=== PATIENT | male | born 1960 | race Caucasian/White ===

== ENCOUNTER → 2019-11-06 13:21 | Outpatient (CLI) | payer OTHER ==
[2014-11-23 17:34] VITALS: BMI 22.7
[~2019-11-06 13:21] MED LIST: BRILINTA90 MG PO; HYDROCODON-ACE1 EAC9 PO; TAMIFLU75 MG PO; XANAX1 MG PO
== END | disposition home or self-care (01) ==
LOC: D.RAD 13:00
PROVIDERS: ATTEND Pediatrics
DX: Z02.71 Encounter for disability determination (principal)

== ENCOUNTER → 2020-01-08 09:57 | Outpatient (CLI) | payer BC ==
[2014-11-23 17:34] VITALS: BMI 22.7
== END | disposition home or self-care (01) ==
LOC: D.HCCARDIO 09:57
PROVIDERS: ATTEND Internal Medicine Cardiovascular Disease
DX: I25.119 Atherosclerotic heart disease of native coronary artery with unspecified angina pectoris (principal)

== ENCOUNTER 2020-02-15 06:06 | Outpatient (CLI) | payer MEDICAID ==
[~2020-02-15] VITALS: Ht 170.2 cm; Wt 78.2 kg
--- NOTE | ~2020-02-15 | HEMODYNAMI ---
PATIENT:SARITA GUZMAN MEDICAL RECORD: [id number] : 60 LOCATION:[facility] ADMISSION DATE: 02/15/20 Generatedon:02/15/20208:43 Patient name: SARITA GUZMAN Patient #: [id number] SSN: [id number] : 1960 Date of study: 02/15/2020 Page: Of Hemodynamic Procedure Report Patient Data Patient Demographics Procedure consent was obtained First Name: SARITA Gender: Male Last Name: MEGAN : 1960 Patient #: [id number] Age: 59 year(s) Race: SSN: [id number] Additional ID: [id number] Contact details Address: [address] [place] [address] [address] State: [place] City: [place] Zip code: [address] Past Medical History Performed procedures and imaging results Date Procedure Procedure Results Comments 01/08/2020 Stress testing Positive->Intermediate with SPECT MPI risk Allergies: No known allergies Admission Admission Data Admission Date: 02/15/2020 Admission Time: 6:06 Arrival Date: 02/15/2020 Arrival Time: 0:00 Admit Source: Other Insurance Payor: Private health insurance [employer] [place] #: [id number] Height (in.): 67 BSA: 1.9 (m2) Height (cm.): 170.18 BMI: 26.99 (kg/m2) Weight (lbs.): 172.36 Weight (kg.): 78.18 Lab Results Lab Result Date: 02/15/2020 Lab Result Time: 0:00 Biochemistry Name Units Result Min Max BUN mg/dl 11 --(-*--)-- 7 18 Creatinine mg/dl 1.2 --(---*)-- 0.6 1.3 eGFR ml/min 66 *-(----)-- 90 120 NONAFRICAN CBC Name Units Result Min Max Hematocrit % 40.7 -*(----)-- 42 54 Hemoglobin g/dl 14.1 --(*---)-- 13.5 17.5 Procedure Procedure Types Cath Procedure Diagnostic Procedure [facility] w/Coronaries Sedation Charges Moderate Sedation up to 30 minutes Procedure Description Procedure Date Procedure Date: 02/15/2020 Procedure Start Time: 8:06 Procedure End Time: 8:42 Procedure Staff Name Function Sydnee Claros RT Monitor Yvonne Arthur RT Scrub Patel Garcia MD Performing Physician Sabrina Hutson RT [employer] Kris Reyna RN Nurse Procedure Data Cath Procedure Fluoroscopy Diagnostic fluoroscopy Total fluoroscopy Time: 8.4 time: 8.4 min min Diagnostic fluoroscopy Total fluoroscopy dose: 836 dose: 836 mGy mGy Contrast Material Contrast Material Type Amount (ml) Isovue 370 124 Entry Location Entry Primary Successful Side Size Upsize Upsize Entry Closure Cardozo ccessful Closure Location (Fr) 1 (Fr) 2 (Fr) Remarks Device Remarks Femoral Right 5 Fr Manual vein Compression Femoral Right 5 Fr Exoseal artery Estimated blood loss: 5 ml Diagnostic catheters Device Type Used For End Catheter Placement MULTIPACK JL 4.0 5Fr Procedure catheter MULTIPACK 3DRC 5Fr Procedure catheter DIAGNOSTIC AL1 5Fr Procedure catheter ([id number]) DIAGNOSTIC AL2 5Fr Procedure catheter ([id number]) DIAGNOSTIC JL 3.5 5Fr Procedure catheter ([id number]) MULTIPACK Pigtail 5 Fr Procedure catheter Procedure Complications No complications Procedure Medications Medication Administration Route Dosage Oxygen etCO2 Nasal cannula 2 l/min Lidocaine 2% added to field 20 Heparin Flush Bag added to field 2 bags (1000units/500ml NS) 0.9% NaCl I.V. 100 ml/hr Versed I.V. 2 mg Fentanyl I.V. 100 mcg Versed I.V. 2 mg Fentanyl I.V. 100 mcg Hemodynamics Rest BSA: 1.9 (m2) O2 Consumption: Estimated: 237.75 (ml/min) O2 Consumption indexed: Estimated:125.13 (ml/min/m) Heart Rate: 90 (bpm) Pressure Samples Time Site Value (mmHg) Purpose Heart Use Rate(bpm) 8:32 LV 129/28,40 Snapshot 92 Gradients Valve Time Site Site Mean SEP/DFP Peak To Heart Use 1 2 (mmHg) (sec/min) Peak Rate (mmHg) (bpm) Aortic 8:33 LV AO 87 Snapshots Pre Cath Intra NCS Post Cath Vital Signs Time Heart Resp SPO2 etCO2 NIBP (mmHg) Rhythm Pain Sedation Rate (ipm) (%) (mmHg) Status Level (bpm) 7:58:39 87 14 96 43.4 90/59(78) NSR 0 (11) 10(A) , No pain 8:02:46 87 15 97 17.9 103/63(83) NSR 0 (11) 10(A) , No pain 8:06:52 89 14 96 0 95/83(91) NSR 0 (11) 10(A) , No pain 8:10:54 93 12 95 44.9 105/83(97) NSR 0 (11) 9(A) , No pain 8:15:49 94 15 94 15.7 140/78(115) NSR 0 (11) 9(A) , No pain 8:19:59 97 12 93 0 110/74(100) NSR 0 (11) 9(A) , No pain 8:24:07 139 14 94 21.7 94/71(89) NSR 0 (11) 9(A) , No pain 8:28:14 94 13 95 1.4 88/67(83) NSR 0 (11) 9(A) , No pain 8:32:20 94 15 96 26.9 93/64(88) NSR 0 (11) 9(A) , No pain 8:36:28 93 14 96 8.9 101/63(82) NSR 0 (11) 10(A) , No pain 8:40:40 90 9 97 0.7 102/63(83) NSR 0 (11) 10(A) , No pain Medications Time Medication Route Dose Verified Delivered Reason Notes Effe ctiveness by by 7:57:01 Oxygen etCO2 2 Patel Buffie used for Nasal l/min Jose Reyna RN procedure cannula 7:57:08 Lidocaine 2% added 20ml Patel Patel for local to vial Jose Garcia MD anesthetic field 7:57:15 Heparin Flush added 2 Patel Patel used for Bag to bags Jose Garcia MD procedure (1000units/500ml field NS) 7:57:24 0.9% NaCl I.V. 100 Patel Buffie Per ml/hr Jose Reyna RN physician 8:06:05 Versed I.V. 2 mg Patel Buffie for Jose Reyna RN sedation 8:06:10 Fentanyl I.V. 100 [place]el [place]abel[place] [facility] [place] Reyna RN sedation 8:13:12 Versed I.V. 2 mg Patel Kris for Jose Reyna RN sedation 8:13:16 Fentanyl I.V. 100 Patel [place]abel[place] [facility] [place] Reyna RN sedation Procedure Log Time Note 7:17:20 Informed consent obtained and on chart 7:17:50 Arrival Date: 02/15/2020 12:00:00 AM 7:17:51 Admit Source: Other 7:17:54 Patient Height : 67 inches 7:17:59 Patient Weight : 172.36 lbs 7:18:06 Insurance Payor : Private health insurance 7:20:07 Patient allergic to No known allergies 7:20:51 Stress Test: yes; normal STABLE 7:21:09 Lab results completed and on chart. 7:21:15 Time tracking: Regular hours (M-F 7:00 - 5:00) 7:21:19 Plan of Care:Hemodynamics will remain stable., Cardiac rhythm will remain stable., Comfort level will be maintained., Respiratory function will remain adequate., Patient/ family verbilizes understanding of procedure., Procedure tolerated without complication., Recovers from procedure without complications.. 7:25:10 H&P Date Dictated: 02/07/2020 Within 30 days and on chart.. 7:25:11 Pre-procedure instructions explained to patient. 7:25:12 Pre-op teaching completed and patient verbalized understanding. 7:25:13 Family unavailable. 7:25:15 Patient NPO since Midnight. 7:30:43 Lab Result : eGFR NONAFRICAN 66 ml/min 7:30:43 Lab Result : Hemoglobin 14.1 g/dl 7:30:43 Lab Result : BUN 11 mg/dl 7:30:43 Lab Result : Creatinine 1.2 mg/dl 7:30:43 Lab Result : Hematocrit 40.7 % 7:39:30 Procedure Status Elective Heart Cath (OP). 7:39:33 Sabrina Hutson RT(R) sent for patient. Start room use. 7:44:33 Patient received from Pre/Post Procedure Room to [facility] 1 Alert and oriented. Tansferred to table in Supine position. 7:44:35 Warm blankets applied, and geri hugger turned on for patient comfort. 7:44:35 Correct patient and procedure confirmed by team. 7:44:36 ECG and BP/O2 sat monitors applied to patient. 7:49:55 Full Disclosure recording started 7:49:58 Is the patient allergic to Iodine/contrast media? No. 7:49:59 Is patient on blood thinner?No 7:50:03 Patient diabetic? No. 7:50:06 Previous problem with sedation/anesthesia? No ? 7:50:08 Snore? Yes 7:50:09 Sleep apnea? No 7:50:10 Deviated septum? No 7:50:11 Opens mouth fully? Yes 7:50:12 Sticks out tongue? Yes 7:50:14 Airway obstruction? No ? 7:50:17 Dentures? No ? 7:50:22 Patient pain scale 0/10 ?. 7:50:26 Pre procedure: right dorsailis pedis pulse 1+ Palpable, but thready & weak; easily obliterated 7:51:46 IV patent on arrival in left hand with 0.9% NaCl at KVO. 7:51:50 Right groin area was prepped with chlora-prep and draped in sterile fashion 7:51:51 Alarms reviewed by R. N. 7:51:52 Sharps counted by scrub and verified by R.N. 7:51:52 Sharps counted by scrub and verified by R.N. 7:52:56 Use device set Femoral Dx 7:52:57 ACIST Syringe (87274) opened to sterile field. 7:52:57 Bag Decanter (2002) opened to sterile field. 7:52:58 ACIST Hand Control (93602) opened to sterile field. 7:52:59 ACIST Manifold (94387) opened to sterile field. 7:52:59 Tegaderm 4 x 4 (1626W) opened to sterile field. 7:53:00 Medline Cath Pack ([id number]) opened to sterile field. 7:53:01 DIAGNOSTIC Multipack 5Fr catheter set ([id number]) opened to sterile field. 7:53:02 SHEATH 5FR [place] (FQD761) opened to sterile field. 7:53:02 EMERALD Guide Wire (427-135) opened to sterile field. 7:57:01 Oxygen 2 l/min etCO2 Nasal cannula was administered by Kris Reyna RN; used for procedure; Verbal order read back and verified. 7:57:08 Lidocaine 2% 20ml vial added to field was administered by Patel Garcia MD; for local anesthetic; Verbal order read back and verified. 7:57:15 Heparin Flush Bag (1000units/500ml NS) 2 bags added to field was administered by Patel Garcia MD; used for procedure; Verbal order read back and verified. 7:57:24 0.9% NaCl 100 ml/hr I.V. was administered by Kris Reyna RN; Per physician; Verbal order read back and verified. 7:57:27 Vital chart was started 8:03:32 --------ALL STOP TIME OUT------ 8:03:33 Final Timeout: patient, procedure, and site verified with staff and physician. All members of the team are in agreement. 8:03:35 Right groin site verified by team. 8:03:38 Fire Safety Assessment: A--An alcohol-based skin anteseptic being used preoperatively., C--Open oxygen or nitrous oxide is being used., D--An ESU, laser, or fiber-optic light is being used. 8:03:44 Physical assessment completed. ASA score P 2 - A patient with mild systemic disease as per Patel Garcia MD. 8:03:49 2) 60-89 Mildly reduced kidney function, and other findings (as for stage 1) point to kidney disease. 8:03:53 Maximum allowable contrast dose (3.7 X eGFR X 0.75)183 ml. 8:03:57 Sedation plan: IV Moderate Sedation Medication:Versed, Fentanyl 8:06:05 Versed 2 mg I.V. was administered by Kris Reyna RN; for sedation; Verbal order read back and verified. 8:06:10 Fentanyl 100 mcg I.V. was administered by Kris Reyna RN; for sedation; Verbal order read back and verified. 8:06:41 Procedure started. 8:06:46 Local anesthetic to right femoral artery with Lidocaine 2% by Patel Garcia MD.INITIAL ACCESS ONLY 8:07:33 Baseline sample Acquired. 8:07:36 Rhythm: sinus rhythm 8:09:23 A 5 Fr sheath was inserted into the Right Femoral vein 8:10:49 VEIN ACCESS WHILE ATTEMPTING ARTERY ACCESS NEW SHEATH AND GOING FOR FEMORAL ARTERIAL. 8:10:58 SHEATH 5FR [place] (LBC943) opened to sterile field. 8:11:10 A 5 Fr sheath was inserted into the Right Femoral artery 8:12:38 A MULTIPACK JL 4.0 5Fr catheter was advanced over the wire and used for Procedure. 8:12:59 LCA angiography performed. 8:13:03 Injector settings: Ml/sec: 3, Volume: 6, 8:13:12 Versed 2 mg I.V. was administered by Kris Reyna RN; for sedation; Verbal order read back and verified. 8:13:16 Fentanyl 100 mcg I.V. was administered by Kris Reyna RN; for sedation; Verbal order read back and verified. 8:15:02 Catheter exchanged over wire. 8:17:30 A MULTIPACK 3DRC 5Fr catheter was advanced over the wire and used for Procedure. 8:17:34 RCA angiography performed. 8:17:35 CIRC IS VISUALIZED OFF THE DISTAL RCA. 8:17:39 ACCDominant side:Right 8:17:42 Catheter exchanged over wire. 8:19:59 GUIDE 6FR JL 5.0 catheter ([id number]) opened to sterile field. 8:20:32 JL5 USED TO ENGAGE CIRC OF THE LCA. 8:21:38 UNABLE TO ENGAGE. 8:22:02 Catheter exchanged over wire. 8:23:12 A DIAGNOSTIC AL1 5Fr catheter ([id number]) was advanced over the wire and used for Procedure. 8:25:25 UNABLE TO ENGAGE. 8:25:27 Catheter exchanged over wire. 8:26:10 A DIAGNOSTIC AL2 5Fr catheter ([id number]) was advanced over the wire and used for Procedure. 8:27:51 UNABLE TO ENGAGE. 8:27:54 Catheter exchanged over wire. 8:28:43 A DIAGNOSTIC JL 3.5 5Fr catheter ([id number]) was advanced over the wire and used for Procedure. 8:31:28 UNABLE TO ENGAGE. 8:31:30 Catheter exchanged over wire. 8:31:38 A MULTIPACK Pigtail 5 Fr catheter was advanced over the wire and used for Procedure. 8:32:34 LV hemodynamics recorded. 8:32:36 LV gram done using FORD 8:32:38 Injector settings: Ml/sec: 5, Volume: 15, 8:32:44 EF : 60 % 8:33:23 Injector settings: Ml/sec: 10, Volume: 20, 8:33:44 Aortic Root visualized 8:37:07 Catheter removed. 8:37:10 EXOSEAL 5Fr (EX500) opened to sterile field. 8:37:29 Sheath removed intact; hemostasis achieved with Manual Compression to the Right Femoral vein. 8:37:35 Sheath removed intact; hemostasis achieved with Exoseal to the Right Femoral artery. 8:38:02 Procedure ended.(Physican Out) 8:38:14 Fluoroscopy time 08.40 minutes. 8:39:02 Fluoroscopy dose: 836 mGy 8:39:02 Flurop Dose total: 836 8:39:09 Dose Area Product 24921 mGy/cm. 8:39:18 Contrast amount:Isovue 370 124ml. 8:39:20 Maximum allowable dose exceeded? No. 8:39:22 Sharps counted by scrub and verified by R.N. 8:39:32 Post-op/insertion site Right Femoral artery dressed using a 4 x 4 and Tegaderm. 8:39:40 Post-op/insertion site Right Femoral vein dressed using a 4 x 4 and Tegaderm. 8:39:45 Post right femoral artery:stable, soft, clean and dry 8:39:54 Post right femoral vein:stable, clean and dry 8:39:57 Post Procedure Pulses reassessed and unchanged 8:40:08 Post-procedure physical assessment completed. ASA score P 2 - A patient with mild systemic disease as per Patel Garcia MD. 8:40:12 Post procedure rhythm: unchanged. 8:40:15 Estimated blood loss: 5 ml 8:40:17 Post procedure instruction explained to patient.Patient verbalizes understanding. 8:40:21 Patient needs reinforcement of post procedure teaching. 8:40:41 Procedure type changed to Cath procedure, Diagnostic procedure, LHC, C w/Coronaries, Sedation Charges, Moderate Sedation up to 30 minutes 8:41:41 Procedure and supply charges have been captured, reviewed, submitted and are correct. 8:41:45 Procedure Complication : No complications 8:41:48 Vital chart was stopped 8:41:50 [facility] Findings: MVD- MD will discuss options w/ pt 8:41:54 Operative report dictated upon procedure completion. 8:41:54 See physician's report for complete and final results. 8:41:56 Report given to Pre/Post Procedure Room. 8:41:58 Patient transfered to Pre/Post Procedure Room with Stretcher. 8:42:01 Procedure ended. 8:42:01 Full Disclosure recording stopped 8:42:28 End room use (Document Last) 8:42:41 End room use (Document Last) 8:43:15 End room use (Document Last) Device Usage Item Name Manufacture Quantity Catalog Hospital Part Current Minimal L ot# / Number Charge Number Stock Stock Serial# Code ACIST Acist 1 00476 390195 283919 277219 20 Syringe Medical (52213) Systems Inc Bag Microtek 1 2001S 140375 53892 984649 5 Decanter Medical Inc. () ACIST Hand Acist 1 16418 953900 932250 199763 5 Control Medical (18729) Systems Inc ACIST Acist 1 69244 239249 708924 240052 5 Manifold Medical (20047) Systems Inc Tegaderm 4 3M 1 1626W 571334 362095 537351 5 x 4 (1626W) Medline Medline 1 [id number] 037484 68783 954677 5 Cath Pack ([id number]) DIAGNOSTIC Cardinal 1 OZ2241 832300 47519 496525 30 Multipack Health 5Fr catheter set (NI2778) SHEATH 5FR Terumo 2 FFU653 826898 482661 006739 5 [place] (TOH577) EMERALD Cardinal 1 502-455 454877 986423 317348 5 Guide Wire Health (502-455) MULTIPACK Cardinal 1 239660 5 JL 4.0 5Fr Health catheter MULTIPACK Cardinal 1 968593 5 3DRC 5Fr Health catheter GUIDE 6FR Medtronic 1 [id number] 028067 76503 736698 1 JL 5.0 catheter (MK2ST84) DIAGNOSTIC Cardinal 1 [id number] 070016 783650 841259 15 AL1 5Fr Health catheter (378038O) DIAGNOSTIC Cardinal 1 [id number] 467771 311594 347303 15 AL2 5Fr Health catheter (475318O) DIAGNOSTIC Cardinal 1 [id number] 088644 773756 622087 5 JL 3.5 5Fr Health catheter (831536H) MULTIPACK Cardinal 1 789091 5 Pigtail 5 Health Fr catheter EXOSEAL 5Fr Cardinal 1 EX500 425497 328199 636079 10 (EX500) Health Signature Audit [place] Stage Time Signature Unsigned Intra-Procedure 02/15/2020 Sydnee Claros 8:42:41 AM RT(R) Intra-Procedure 02/15/2020 Kris Reyna RN 8:43:15 AM Intra-Procedure 02/15/2020 Patel Garcia MD 8:43:39 AM [place] [id number]
[2020-02-15] MEDS ORDERED: NORVASC5 MG PO (06:24)
[2020-02-15] MEDS ORDERED: LIPITOR40 MG PO (06:24)
[2020-02-15] MEDS ORDERED: OMEPRAZOLE20 M1 PO (06:24)
[2020-02-15 06:52] VITALS: BP 128/75; BMI 27.0
[2020-02-15 07:01] LABS: BASOPHILS 0.6 % (0-2); EOSINOPHILS 2.9 % (0-7); HEMATOCRIT 40.7 % (42.0-54.0); HEMOGLOBIN 14.1 g/dL (13.5-17.5); IMMATURE GRANULOCYTES 0.1 % (0-5); LYMPHOCYTES 27.9 % (15-50); MCH 29.5 pg (26.0-34.0); MCHC 34.6 g/dL (31.0-37.0); MCV 85.1 fL (80.0-100.0); MEAN PLATELET VOLUME 9.4 fL (7.4-10.4); MONOCYTES 8.8 % (2-11); NEUTROPHILS 59.7 % (40-80); RBC 4.78 10x6/uL (4.20-6.10); RDW 13.2 % (11.5-14.5); WBC 7.7 10x3/uL (4.8-10.8)
[2020-02-15 07:05] LABS: PLATELET COUNT 259 10x3/uL (130-400)
[2020-02-15 07:15] LABS: CALCIUM 8.9 mg/dL (8.5-10.1); CARBON DIOXIDE 25.9 mmol/L (21.0-32.0); CHOL - HDL RATIO 4.1 ratio (2.3-4.9); CREATININE - SERUM 1.2 mg/dL (0.6-1.3); LDL-HDL RATIO 2.2 ratio (1.5-3.5); POTASSIUM - SERUM 3.9 mmol/L (3.5-5.1)
--- NOTE | 2020-02-15 08:55 | NUR ---
PT RECEIVED VIA STRETCHER FROM [employer]LE [employer]CH[employer]IC HELPER FOR RECOVERY. PT AWAKE BUT DROWSY, DENIES PAIN OR DISCOMFORT. IV PATENT INFUSING VIA ORDERS. PT PLACED ON CARDIAC MONITORS, HR 91, BP 118/74, RR 15, SAT 97 ON 2L/NC. R GROIN SOFT, DRESSING CDI NO S/S HEMATOMA OR BLEEDING NOTED. LEG PINK AND WARM, PEDAL PULSES PALPABLE. CALL LIGHT IN REACH.
--- NOTE | 2020-02-15 09:15 | NUR ---
PT RESTING COMFORTABLY, R GROIN SOFT, DRESSING REMAINS CDI NO S/S HEMATOMA NOTED. HR 83, BP 99/68, RR 11. SIPS OF SPRITE GIVEN PER PT REQUEST. PT DENIES PAIN OR DISCOMFORT. CALL LIGHT IN REACH.
--- NOTE | 2020-02-15 10:00 | NUR ---
R GROIN SOFT, DRESSING CDI NO S/S HEMATOMA OR SWELLING NOTED. VSS. HOB ELEVATED SLIGHTLY, SANDWICH TRAY AND DRINK SERVED. PT DENIES PAIN OR DISCOMFORT. 300 CC CLEAR YELLOW URINE VIA URINAL.
--- NOTE | 2020-02-15 10:31 | NUR ---
PT RESTING COMFORTABLY. R GROIN SOFT, NO S/S HEMATOMA OR BLEEDING. PT DENIES PAIN OR DISCOMFORT. VSS. CALL LIGHT IN REACH
--- NOTE | 2020-02-15 10:59 | NUR ---
DISCHARGE PAPERWORK REVIEWED W PT, HE VERBALIZED UNDERSTANDING. IV REMOVED W CATH INTACT. MONITORS REMOVED. R GROIN SOFT, NO S/S HEMATOMA NOTED. PT UP TO DRESS FOR DISCHARGE. DR CHAPARRO CALLED AND WILL COME SEE PT TO DISCUSS PROCEDURE BEFORE HE LEAVES.
--- NOTE | 2020-02-15 11:30 | NUR ---
DR CHAPARRO AT , DISCUSSED W PT PROCEDURE RESULTS AND PLAN OF CARE. PT WAITING ON TO COME SEE HIM REGARDING FOLLOW UP
--- NOTE | 2020-02-15 11:59 | NUR ---
AND HIS NURSE AT DISCUSSING PLAN OF CARE.
--- NOTE | 2020-02-15 12:12 | NUR ---
1205 PT DISCHARGED VIA WC TO DAUGHTER WAITING IN PRIVATE VEHICLE. PT HAD ALL BELONGINGS. 1210 WENT TO CLEAN PT ROOM AND DISCOVERED HIS DISCHARGE FOLDER. DAUGHTER CALLED AND SHE ASK THAT WE PUT IT IN THE MAIL TO HIM.
[2020-02-15 12:20] VITALS: Ht 170.2 cm; Wt 78.2 kg
== END 2020-02-15 12:05 | disposition home or self-care (01) ==
LOC: D.CATH 06:06
PROVIDERS: ATTEND Internal Medicine Cardiovascular Disease
DX: I25.110 Atherosclerotic heart disease of native coronary artery with unstable angina pectoris (principal); Z72.0 Tobacco use; K21.9 Gastro-esophageal reflux disease without esophagitis; Z86.73 Personal history of transient ischemic attack (TIA), and cerebral infarction without residual deficits

== ENCOUNTER 2020-02-20 09:30 | Inpatient (IN) | payer MEDICAID ==
[~2020-02-20] VITALS: Ht 170.2 cm; Wt 78.0 kg
[~2020-02-20 09:30] MED LIST changes: +LIPITOR40 MG PO; +NORVASC5 MG PO; +OMEPRAZOLE20 M1 PO
[2020-02-20] MEDS ORDERED: HYDROCODON-ACE1 EAC2 PO (09:57)
[2020-02-20 12:13] LABS: BASOPHILS 0.4 % (0-2); HEMATOCRIT 42.2 % (42.0-54.0); HEMOGLOBIN 14.5 g/dL (13.5-17.5); IMMATURE GRANULOCYTES 0.1 % (0-5); LYMPHOCYTES 18.7 % (15-50); MCH 29.5 pg (26.0-34.0); MCHC 34.4 g/dL (31.0-37.0); MCV 85.9 fL (80.0-100.0); MEAN PLATELET VOLUME 9.2 fL (7.4-10.4); MONOCYTES 6.8 % (2-11); PLATELET COUNT 247 10x3/uL (130-400); RBC 4.91 10x6/uL (4.20-6.10); RDW 13.4 % (11.5-14.5)
[2020-02-20 12:41] LABS: APTT 26.7 SECONDS (22.8-39.4); INR 0.93 (0.85-1.17); PROTIME 12.5 SECONDS (11.6-15.0)
[2020-02-20 12:43] LABS: BACTERIA FEW /hpf (NEGATIVE); BILIRUBIN NEGATIVE (NEGATIVE); EPITHELIAL CELL CAST RARE /lpf (NONE SEEN); EPITHELIAL CELLS 0-5 /hpf (0-5); GLUCOSE NEGATIVE (NEGATIVE); HYALINE CAST OCC /lpf (NONE SEEN); KETONE NEGATIVE (NEGATIVE); NITRITE NEGATIVE (NEGATIVE); RED CELLS - URINE OCC /hpf (0-5); SPECIFIC GRAVITY 1.015 (1.005-1.020); UROBILINOGEN NORMAL (NORMAL); WHITE CELLS - URINE RARE /hpf (NEGATIVE)
[2020-02-20 12:55] LABS: ALBUMIN 3.8 g/dL (3.4-5.0); BILIRUBIN - TOTAL 0.39 mg/dL (0.2-1.3); CARBON DIOXIDE 26.8 mmol/L (21.0-32.0); CREATININE - SERUM 1.1 mg/dL (0.6-1.3); PHOSPHOROUS 2.7 mg/dL (2.5-4.9); POTASSIUM - SERUM 3.8 mmol/L (3.5-5.1); PROTEIN - SERUM 7.6 g/dL (6.4-8.2); T4 THYROXIN - FREE 1.19 ng/dL (0.76-1.46); THYROID STIMULATING HORMONE 1.94 uIU/mL (0.36-3.74); URIC ACID 6.9 mg/dL (2.6-7.2)
[2020-02-22] VITALS (49 sets, daily range): BP systolic 94–143; BP diastolic 60–96; BMI 26.3; BMI 27.9
[2020-02-22 12:49] LABS: BASOPHILS 0.3 % (0-2); EOSINOPHILS 0.5 % (0-7); HEMATOCRIT 37.2 % (42.0-54.0); HEMOGLOBIN 12.6 g/dL (13.5-17.5); IMMATURE GRANULOCYTES 0.2 % (0-5); MCH 29.5 pg (26.0-34.0); MCHC 33.9 g/dL (31.0-37.0); MCV 87.1 fL (80.0-100.0); MEAN PLATELET VOLUME 9.1 fL (7.4-10.4); MONOCYTES 6.2 % (2-11); NEUTROPHILS 81.8 % (40-80); PLATELET COUNT 226 10x3/uL (130-400); RBC 4.27 10x6/uL (4.20-6.10); RDW 13.5 % (11.5-14.5); WBC 11.9 10x3/uL (4.8-10.8)
[2020-02-22 13:02] LABS: APTT 37.2 SECONDS (22.8-39.4); INR 1.03 (0.85-1.17); PROTIME 13.4 SECONDS (11.6-15.0)
[2020-02-23] VITALS (45 sets, daily range): BP systolic 104–141; BP diastolic 52–80; Ht 170.2 cm; Wt 78.0 kg
[2020-02-23 06:35] LABS: ALBUMIN 3.1 g/dL (3.4-5.0); ALKALINE PHOSPHATASE 80 U/L (30-120); ALT (SGPT) 34 U/L (10-68); BILIRUBIN - TOTAL 0.76 mg/dL (0.2-1.3); CALC OSMOLALITY 276 mosm/kg (275-300); CALCIUM 8.2 mg/dL (8.5-10.1); CARBON DIOXIDE 25.9 mmol/L (21.0-32.0); CHLORIDE - SERUM 102 mmol/L (98-107); CREATININE - SERUM 0.9 mg/dL (0.6-1.3); GLUCOSE 129 mg/dL (74-106); POTASSIUM - SERUM 3.7 mmol/L (3.5-5.1); PROTEIN - SERUM 6.4 g/dL (6.4-8.2); SODIUM 138 mmol/L (136-145); UREA NITROGEN 9 mg/dL (7-18); eGFR NON AFRICAN AMERICAN > 90 mL/min (90-120)
[2020-02-23 07:20] LABS: HEMOGLOBIN 12.9 g/dL (13.5-17.5); MCH 29.1 pg (26.0-34.0); MCHC 33.9 g/dL (31.0-37.0); MCV 85.8 fL (80.0-100.0); MEAN PLATELET VOLUME 9.6 fL (7.4-10.4); RBC 4.43 10x6/uL (4.20-6.10); RDW 13.6 % (11.5-14.5); WBC 11.4 10x3/uL (4.8-10.8)
--- NOTE | 2020-02-23 10:39 | OP ---
PATIENT NAME: SARITA GUZMAN MEDICAL RECORD: [id number] :60 LOCATION:D.[facility] D.CV04 ADMISSION DATE:02/22/20 SURGEON: ERICK MCCOY MD DATE OF OPERATION: 02/22/2020 SURGEON: Erick Mccoy MD PROCEDURE PERFORMED: Off pump coronary artery bypass graft times 1 (left internal mammary artery to LAD). PREOPERATIVE DIAGNOSES: Coronary artery disease with in-stent restenosis and unstable angina. POSTOPERATIVE DIAGNOSES: Coronary artery disease with in-stent restenosis and unstable angina. ANESTHESIA: General endotracheal anesthesia. ESTIMATED BLOOD LOSS: 100 cc. COMPLICATIONS: None. SPECIMENS: None. CONDITION: Stable. DISPOSITION: CV ICU. OPERATIVE FINDINGS: 1. Normal appearing hard and long mid left anterior descending stent. 2. Good quality left internal mammary artery. The LAD was 2.0 mm with severe mid and distal disease and good Doppler signal after anastomosis and after reversal of heparin. OPERATIVE INDICATIONS: Coronary artery disease and unstable angina. DESCRIPTION OF PROCEDURE: The patient was brought to the operating suite. General anesthesia was obtained. The patient was prepped and draped. Median sternotomy incision was made. Subcutaneous tissue was divided with electrocautery. Sternum was divided with a saw. The left hemisternum was elevated and the left pleural cavity was entered. The right pleural cavity was entered on opening the chest. Left internal mammary artery and vein was taken down as a pedicle graft. Sternal retractor was placed and heparin was given. The aorta was exposed after opening the pericardium. Left side of the heart was elevated. An opening was made in the pericardium. Internal mammary was clipped distally and made ready for anastomosis. The heart was stabilized using the off pump retraction system. Inflow occluded just below the end of the stent and the vessel was opened, end-to-side standard anastomosis was performed. Flow was restored. A single suture was placed in the side to prevent bleeding and flow was documented to be good, inflow occlusion was removed. Thorough irrigation was undertaken. The pedicle was tacked to the heart. Heart returned to the anatomic position. Protamine was given. Drains were placed in the mediastinum and both pleural cavities. Pericardial fat was loosely reapproximated. Internal mammary harvest OPERATIVE REPORT [id number] SARITA GUZMAN site was inspected for bleeding. Both chests were evacuated. The sternum was closed with wires. Fascia was closed. Subcutaneous tissue was closed. Marcaine had been placed in the internal mammary bed prior to surgery and some was placed in the muscle layer. Skin was closed. Dermabond was placed. The needle and sponge counts were reported as correct. The patient was extubated and taken to ICU in stable condition. TRANSINT:[id number] Voice Confirmation ID: [id number] DOCUMENT ID: [id number] ERICK MCCOY MD at 1039 CC: CATIE CHAPARRO M.D. and BRENDA GUZMAN MD [id number] DICTATION DATE: 02/22/20 1056 CAFETERIA MANAGER: 02/22/20 1134 ADM IN [facility] [address] [place] [id number]
[2020-02-24] VITALS (24 sets, daily range): BP systolic 92–135; BP diastolic 44–82
[2020-02-24 05:47] LABS: HEMATOCRIT 37.7 % (42.0-54.0); HEMOGLOBIN 12.7 g/dL (13.5-17.5); MCH 29.2 pg (26.0-34.0); MCHC 33.7 g/dL (31.0-37.0); MCV 86.7 fL (80.0-100.0); MEAN PLATELET VOLUME 8.9 fL (7.4-10.4); RBC 4.35 10x6/uL (4.20-6.10); RDW 13.5 % (11.5-14.5); WBC 11.3 10x3/uL (4.8-10.8)
[2020-02-24 06:00] LABS: ALKALINE PHOSPHATASE 80 U/L (30-120); ALT (SGPT) 27 U/L (10-68); CALC OSMOLALITY 272 mosm/kg (275-300); CALCIUM 8.4 mg/dL (8.5-10.1); CARBON DIOXIDE 31.4 mmol/L (21.0-32.0); CHLORIDE - SERUM 101 mmol/L (98-107); GLUCOSE 103 mg/dL (74-106); POTASSIUM - SERUM 3.9 mmol/L (3.5-5.1); PROTEIN - SERUM 6.7 g/dL (6.4-8.2); SODIUM 137 mmol/L (136-145); UREA NITROGEN 9 mg/dL (7-18); eGFR NON AFRICAN AMERICAN 81 mL/min (90-120)
[2020-02-25] VITALS (23 sets, daily range): BP systolic 90–129; BP diastolic 53–81
[2020-02-25 05:17] LABS: HEMATOCRIT 37.8 % (42.0-54.0); HEMOGLOBIN 12.8 g/dL (13.5-17.5); MCH 29.1 pg (26.0-34.0); MCHC 33.9 g/dL (31.0-37.0); MCV 85.9 fL (80.0-100.0); MEAN PLATELET VOLUME 9.3 fL (7.4-10.4); RBC 4.4 10x6/uL (4.20-6.10); RDW 13.4 % (11.5-14.5); WBC 9.5 10x3/uL (4.8-10.8)
[2020-02-25 05:56] LABS: ALBUMIN 2.8 g/dL (3.4-5.0); ALKALINE PHOSPHATASE 90 U/L (30-120); ALT (SGPT) 30 U/L (10-68); CALCIUM 8.6 mg/dL (8.5-10.1); CARBON DIOXIDE 25.8 mmol/L (21.0-32.0); CHLORIDE - SERUM 100 mmol/L (98-107); GLUCOSE 127 mg/dL (74-106); PROTEIN - SERUM 6.7 g/dL (6.4-8.2); SODIUM 135 mmol/L (136-145); eGFR NON AFRICAN AMERICAN 81 mL/min (90-120)
[2020-02-25 06:14] LABS: CALC OSMOLALITY 270 mosm/kg (275-300); POTASSIUM - SERUM 3.3 mmol/L (3.5-5.1); UREA NITROGEN 11 mg/dL (7-18)
[2020-02-26] VITALS (11 sets, daily range): BP systolic 100–137; BP diastolic 59–93
[2020-02-26 06:57] LABS: HEMATOCRIT 36.5 % (42.0-54.0); HEMOGLOBIN 12.5 g/dL (13.5-17.5); MCH 29.3 pg (26.0-34.0); MCHC 34.2 g/dL (31.0-37.0); MCV 85.7 fL (80.0-100.0); RBC 4.26 10x6/uL (4.20-6.10); RDW 13.5 % (11.5-14.5); WBC 7.7 10x3/uL (4.8-10.8)
[2020-02-26 07:13] LABS: ALBUMIN 2.8 g/dL (3.4-5.0); ALKALINE PHOSPHATASE 97 U/L (30-120); ALT (SGPT) 31 U/L (10-68); BILIRUBIN - TOTAL 0.55 mg/dL (0.2-1.3); CALC OSMOLALITY 270 mosm/kg (275-300); CALCIUM 8.4 mg/dL (8.5-10.1); CARBON DIOXIDE 25.5 mmol/L (21.0-32.0); CHLORIDE - SERUM 101 mmol/L (98-107); GLUCOSE 115 mg/dL (74-106); POTASSIUM - SERUM 3.6 mmol/L (3.5-5.1); PROTEIN - SERUM 6.8 g/dL (6.4-8.2); SODIUM 136 mmol/L (136-145); eGFR NON AFRICAN AMERICAN 81 mL/min (90-120)
[2020-02-26 07:14] LABS: UREA NITROGEN 8 mg/dL (7-18)
[2020-02-26] MEDS ORDERED: PLAVIX75 MG PO (09:56)
--- NOTE | 2020-02-26 09:57 | TEE ---
PATIENT:SARITA GUZMAN MEDICAL RECORD: [id number] LOCATION:[place] [address] AGE OF PATIENT: 59 ADMISSION DATE: 02/22/20 SEX: M REFERRING PHYSICIAN: INTERPRETING PHYSICIAN: FRANCES JOSEPH MD TRANSESOPHAGEAL ECHOCARDIOGRAM Date: 02/20/20 MARITZA CHARGE Y INDICATIONS: CABG PREMEDICATIONS: PATIENT'S RESPONSE PROCEDURE DOPPLER MEASUREMENTS: LVIT LA 3.4 PA RA LVOT RVOT Asc. Ao AV Gradient Peak AV Mean AV Area MV Gradient Peak MV Mean MV Area INTERPRETATION: Doppler: 2-D: COLOR FLOW DOPPLER NORMAL SALINE STUDY: MISCELLANOUS: LVD: 4.0 LVS: 2.7 DIAGNOSIS: PLAN: Medical Staff Services Manager:3 Dr. Ray Miller Head Wet Process: Julian DEWITT COMMENTS: DATE OF SERVICE: 02/22/2020 PROCEDURE: Intraoperative MARITZA. Preop shows normal LV wall motion, wall thickening, EF greater than 55%. Aortic valve is tricuspid with good valve excursion. Left atrium appears normal. Mitral valve appears normal. Trace MR. Postoperatively, good wall motion, good wall thickening, EF is normal at 55%. Aortic valve is tricuspid, good valve excursion. Left atrium appears normal. Mitral valve appears normal with TRANSESOPHAGEAL ECHOCARDIOGRAM REPORT [id number] SARITA GUZMAN trivial mitral regurgitation. TRANSINT:[id number] Voice Confirmation ID: [id number] DOCUMENT ID: [id number] at 0957 CC: [id number] DICTATION DATE: 02/22/20 1355 GLUED WOOD TESTER: 02/22/20 1416 ADM IN [place] [id number] [place] [address]
[2020-02-26] MEDS ORDERED: LOPRESSOR25 MG PO (10:00)
[2020-02-26] MEDS ORDERED: ASPIRIN EC81 M1 PO (10:01)
[2020-02-26] MEDS ORDERED: HYDROCODON-ACE1 EAC7 PO (10:02)
[2020-02-26] MEDS ORDERED: COLACE100 MG PO (10:05)
[2020-02-26] MEDS ORDERED: FLOMAX0.4 MG PO (10:12)
--- NOTE | 2020-02-26 13:28 | MORECARE ---
CASE MANAGEMENT DISCHARGE SUMMARY PATIENT: SARITA GUZMAN UNIT: [id number] ADM DATE: 02/22/20 AGE: 59 : 60 SEX: M [facility] AUTHOR: VARINDER BONNER PHYSICIAN: REFERRING PHYSICIAN: RUTH MCCOY MD DATE OF SERVICE: 02/26/20 Discharge Plan Patient Name[facility]MAN [facility] [facility] 1960 Planned Disposition: Home Anticipated Discharge Date: 02/26/20 Discharge Date: 02/26/2020 Expected LOS: 4 Initial Reviewer: [email or web address] Initial Review Date: 02/20/2020 Generated: 02/26/20 2:27 pm Patient Name: SARITA GUZMAN Page [phone] at 1328 All edits/amendments must be made on the electronic document DICTATION DATE: 02/26/20 1327 CRANE HOIST OR LIFT OPERATOR: PAOLA 02/26/20 1327 RPT#: [id number] DC DATE:02/26/20 [facility]US: [facility] [address] [place] [address] END OF REPORT
--- NOTE | 2020-02-26 13:35 | MORECARE ---
CASE MANAGEMENT DISCHARGE SUMMARY PATIENT: SARITA GUZMAN UNIT: [id number] ADM DATE: 02/22/20 AGE: 59 : 60 SEX: M [facility] AUTHOR: VARINDER BONNER PHYSICIAN: REFERRING PHYSICIAN: RUTH MCCOY MD DATE OF SERVICE: 02/26/20 Discharge Plan Patient Name: SARITA GUZMAN [facility] [facility] 1960 Planned Disposition: Home Anticipated Discharge Date: 02/26/20 Discharge Date: 02/26/2020 Expected LOS: 4 Initial Reviewer: [email or web address] Initial Review Date: 02/20/2020 Generated: 02/26/20 2:34 pm Last DP export: 02/26/20 12:28 p Patient Name: SARITA GUZMAN Page [phone] at 1335 All edits/amendments must be made on the electronic document DICTATION DATE: 02/26/20 1334 PAID SEARCH SPECIALIST: PAOLA 02/26/20 1334 RPT#: [id number] DC DATE:02/26/20 STATUS: DIS IN [facility] [address] [place] [address] END OF REPORT
--- NOTE | 2020-02-26 13:57 | MORECARE ---
CASE MANAGEMENT DISCHARGE SUMMARY PATIENT: SARITA GUZMAN UNIT: [id number] ADM DATE: 02/22/20 AGE: 59 : 60 SEX: M [facility] AUTHOR: VARINDER BONNER PHYSICIAN: REFERRING PHYSICIAN: RUTH MCCOY MD DATE OF SERVICE: 02/26/20 Discharge Plan Patient Name: SAR[facility]MAN [facility] [facility] 1960 Planned Disposition: Home Anticipated Discharge Date: 02/26/20 Discharge Date: 02/26/2020 Expected LOS: 4 Initial Reviewer: [email or web address] Initial Review Date: 02/20/2020 Generated: 02/26/20 2:57 pm DCPIA - Discharge Planning Initial Assessment Updated by [email or web address]: Brenda Price on 02/26/20 1:55 pm * Is the patient Alert and Oriented? Yes * How many steps to enter\exit or inside your home? 3/no rails * PCP Dr. Paniagua * Pharmacy [facility] * Preadmission Environment Home Alone * ADLs Independent * Equipment None * Other Equipment NA * List name and contact numbers for known caregivers / representatives who currently or will assist patient after discharge: Roni Richter (dtr) [phone] * Verbal permission to speak to the caregivers and representatives has been obtained from the patient. Yes * Community resources currently utilized None * Additional services required to return to the preadmission environment? No * Can the patient safely return to the preadmission environment? Yes * Has this patient been hospitalized within the prior 30 days at any hospital? No Last DP export: 02/26/20 12:35 p Patient Name: SARITA GUZMAN Page [id number] at 1357 All edits/amendments must be made on the electronic document DICTATION DATE: 02/26/20 1357 INSIDE SALES ACCOUNT MANAGER: PAOLA 02/26/20 1357 RPT#: [id number] DC DATE:02/26/20 STATUS: DIS IN [facility] [address] [place] [address] END OF REPORT
--- NOTE | 2020-02-26 14:06 | MORECARE ---
CASE MANAGEMENT DISCHARGE SUMMARY PATIENT: SARITA GUZMAN UNIT: [id number] ADM DATE: 02/22/20 AGE: 59 : 60 SEX: M [facility]: [facility] AUTHOR: KAILEY,DOC PHYSICIAN: REFERRING PHYSICIAN: RUTH MCCOY MD DATE OF SERVICE: 02/26/20 Discharge Plan Patient Name: SARITA GUZMAN Facility: [facility]:[place] : 1960 Planned Disposition: Home Anticipated Discharge Date: 02/26/20 Discharge Date: 02/26/2020 Expected LOS: 4 Initial Reviewer: [email or web address] Initial Review Date: 02/20/2020 Generated: 02/26/20 3:06 pm Comments DCP- Discharge Planning Updated by [email or web address]: Brenda Price on 02/26/20 1:[address] Plan: Home alone. Patient request [facility]. CM contacted Dr. Mccoy's office, spoke with Cassandra regarding HHS. CM contacted patient's daughter, Roni Richter, regarding DC needs/plans. PCP: Dr. Paniagua. Pharmacy: [facility]. DME: No. Patient lives alone, his daughter will drive him home. Patient's daughter states the patient request [facility]. Advised daughter that patient may have to see Dr. Mccoy for his first appointment prior to HHS. DCPIA - Discharge Planning Initial Assessment Updated by [email or web address]: Brenda Price on 02/26/20 1:55 pm * Is the patient Alert and Oriented? Yes * How many steps to enter\exit or inside your home? 3/no rails * PCP Dr. Paniagua * Pharmacy [facility] * Preadmission Environment Home Alone * ADLs Independent * Equipment None * Other Equipment NA * List name and contact numbers for known caregivers / representatives who currently or will assist patient after discharge: Roni Richter (dtr) [phone] * Verbal permission to speak to the caregivers and representatives has been obtained from the patient. Yes * Community resources currently utilized None * Additional services required to return to the preadmission environment? No * Can the patient safely return to the preadmission environment? Yes * Has this patient been hospitalized within the prior 30 days at any hospital? No Last DP export: 02/26/20 12:57 p Patient Name: SARITA GUZMAN Page [id number] at 1406 All edits/amendments must be made on the electronic document DICTATION DATE: 02/26/201405 FLARE MAN: PAOLA 02/26/201405 RPT#: [id number] DC DATE:02/26/20 STATUS: DIS IN [facility] [address] [place] [address] END OF REPORT
== END 2020-02-26 12:10 | disposition home or self-care (01) | DRG 236 ==
LOC: D.SDCHOLD 09:30 → D.CVICU 02-22 05:18 → D.SDCHOLD 02-22 07:30 → D.CVICU 02-22 09:27 → D.SDCHOLD 02-22 09:30 → D.CVICU 02-26 12:10
PROVIDERS: ADMIT Thoracic Surgery (Cardiothoracic Vascular Surgery); ATTEND Thoracic Surgery (Cardiothoracic Vascular Surgery)
PROC: B245ZZ4 Ultrasonography of Left Heart, Transesophageal (ICD-10-PCS; 2020-02-22)
PROC: 02100Z9 Bypass Coronary Artery, One Artery from Left Internal Mammary, Open Approach (ICD-10-PCS; principal; 2020-02-22 07:30)
DX: I25.110 Atherosclerotic heart disease of native coronary artery with unstable angina pectoris (principal); T82.855A Stenosis of coronary artery stent, initial encounter; Y83.9 Surgical procedure, unspecified as the cause of abnormal reaction of the patient, or of later complication, without mention of misadventure at the time of the procedure; I10 Essential (primary) hypertension; E78.5 Hyperlipidemia, unspecified; R00.0 Tachycardia, unspecified; Z86.73 Personal history of transient ischemic attack (TIA), and cerebral infarction without residual deficits

== ENCOUNTER → 2020-03-13 08:43 | Outpatient (CLI) | payer MEDICAID ==
[2020-02-23 13:08] VITALS: BMI 28.6
[~2020-03-13 08:43] MED LIST changes: +ASPIRIN EC81 M1 PO; +COLACE100 MG PO; +FLOMAX0.4 MG PO; +HYDROCODON-ACE1 EAC2 PO; +HYDROCODON-ACE1 EAC7 PO; +LOPRESSOR25 MG PO; +PLAVIX75 MG PO
[2020-03-13 09:19] LABS: BASOPHILS 0.5 % (0-2); EOSINOPHILS 2.7 % (0-7); HEMATOCRIT 38.6 % (42.0-54.0); IMMATURE GRANULOCYTES 0.2 % (0-5); LYMPHOCYTES 29.7 % (15-50); MCH 29.3 pg (26.0-34.0); MCHC 33.7 g/dL (31.0-37.0); MCV 86.9 fL (80.0-100.0); MONOCYTES 6.7 % (2-11); NEUTROPHILS 60.2 % (40-80); RBC 4.44 10x6/uL (4.20-6.10); RDW 13.4 % (11.5-14.5); WBC 6.6 10x3/uL (4.8-10.8)
[2020-03-13 09:25] LABS: ANION GAP 10.9 mmol/L (8-16); CALCIUM 8.6 mg/dL (8.5-10.1); CARBON DIOXIDE 27.9 mmol/L (21.0-32.0); CREATININE - SERUM 1.2 mg/dL (0.6-1.3); POTASSIUM - SERUM 3.8 mmol/L (3.5-5.1)
[2020-03-13 09:57] LABS: PLATELET COUNT 338 10x3/uL (130-400)
== END | disposition home or self-care (01) ==
LOC: D.RAD 08:43
PROVIDERS: ATTEND Thoracic Surgery (Cardiothoracic Vascular Surgery)
DX: I25.10 Atherosclerotic heart disease of native coronary artery without angina pectoris (principal)

== ENCOUNTER → 2020-06-19 09:56 | Outpatient (CLI) | payer MEDICAID ==
[2020-02-23 13:08] VITALS: BMI 28.6
[2020-06-19 11:45] LABS: CHOL - HDL RATIO 5.2 ratio (2.3-4.9); LDL-HDL RATIO 3.5 ratio (1.5-3.5)
== END | disposition home or self-care (01) ==
LOC: D.LABREF 09:56
PROVIDERS: ATTEND Internal Medicine Cardiovascular Disease
DX: E78.5 Hyperlipidemia, unspecified (principal)